=== PATIENT | female | born 1940 | race Caucasian/White ===

== ENCOUNTER 2020-05-21 10:30 | Outpatient (REF) | payer SELFPAY | END 2020-05-21 10:31 | disposition home or self-care (01) | LOC: HO.HAP 10:30 | PROVIDERS: PCP Internal Medicine; Visit Provider Internal Medicine | DX: Z46.1 Encounter for fitting and adjustment of hearing aid (principal) | CPT/HCPCS: V5266; V5267 ==

== ENCOUNTER 2020-05-29 12:12 | Outpatient (REF) | payer SELFPAY | END 2020-05-29 12:13 | disposition home or self-care (01) | LOC: HO.HAP 12:12 | PROVIDERS: PCP Internal Medicine; Referring Provider Internal Medicine; Visit Provider Internal Medicine | DX: Z46.1 Encounter for fitting and adjustment of hearing aid (principal) | CPT/HCPCS: 92700 ==

== ENCOUNTER 2020-09-03 10:25 | Outpatient (REF) | payer MEDICARE, SELFPAY ==
--- NOTE | 2020-09-04 08:10 | MHC.AU.P13 ---
Adult Audiological Evaluation Date of Visit: 09/03/20 Manager Industrial Used: Not Applicable Reason for Appointment: Audiologic re-evaluation due to question of change in hearing ability, particularly when background noise is present. Is also getting significant amount of feedback from both hearing aids. 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 Ear History: Recent Ear Infections: Past history of ear infections, none recently History of Ear Wax Buildup: Right ear recently cleaned by PCP Medical History: Medical History: Cancer High Blood Pressure Medical History: Skin cancer - surgically removed. Breast lumpectomy with radiation and Tamoxifen History of significant post nasal drop Medication List: Hydrochlorothorizide, Pantrprazol, Lorazepam, Atorvastatin, Multi Vitamin, Flonase as needed. Hearing Instrument History- Right Ear: Integration Project Manager: Asha Model: S Series 9 [facility] Serial Number: [id number] Battery Size: 10 Repair Warranty: 06/23/2020 Loss and Damage Warranty: Dispensed By: [facility] Date of Fittin06/26/2009 Hearing Instrument History- Left Ear: Integration Project Manager: Asha Model: S SERIES 9 [facility] Serial Number: [id number] Battery Size: 10 Warranty: 06/23/2020 Loss and Damage Warranty: Dispensed By: [facility] Date of Fittin06/26/2009 Otoscopy: Right Ear: Partially occluded with cerumen Left Ear: Unremarkable Tympanometry: Tympanometry performed due to: History of middle ear dysfunction Right Ear: Normal Middle Ear System (Type A) Left Ear: Normal Middle Ear System (Type A) Hearing Evaluation: Transducer(s) Used: Insert Earphones Method: Conventional Audiometry Stimuli Used: Pure Tones Right Ear: Description of Hearing: Mild dropping to severe high frequency sensorineural hearing loss Left Ear: Description of Hearing: Mild dropping to severe high frequency sensorineural hearing loss Speech Recognition Threshold (SRT): Method Used: Monitored Live Voice Stimuli Used: Spondee Words Right Ear: 35 dB HL Left Ear: 35 dB HL Word Discrimination: Method: Recorded Lists Word Lists Used: NU-6 Right Ear: 92% at 75 dB HL Left Ear: 92% at 75 dB QuickSIN: Binaural Quick SIN Test score: 4 dB SNR Loss suggesting Carmel experiences a mild degree of difficulty understanding speech with increasing levels of background noise. Comparison: Compared to 06/11/2019, thresholds have decreased 5-10 dB with a slight decrease in speech understanding for both ears Recommendations: Audiological re-evaluation in one year. Advise cerumen removal from the right ear. Carmel will try the [id number] drops Ear Wax MD. If using the drops does not remove the cerumen, she is advised to have a physician remove the cerumen. Due to the age of the current hearing aids and the aids are reaching their maximum range of amplification, discussed obtaining new hearing aids. Will send a medical clearance to PCP. Carmel will schedule a Hearing Aid Evaluation appointment when she is ready to pursue new hearing aids. Diagnosis: Primary Diagnosis: H90.3 Bilateral Sensorineural Hearing Loss Services Performed: Comprehensive Audiological Evaluation (CPT 28658) Tympanometry (CPT 96943) Signature: Provider: Blas Feliciano, MACI-A
--- NOTE | 2020-09-04 08:13 | MHC.AU.MED ---
Medical Clearance for Hearing Instrumentation Date: 09/04/20 Patient Name: Carmel Velazquez Date of : 1940 Primary Care Provider: Referring Provider: Brianda Gonsales MD We have seen your patient on 09/04/20 and have determined that they are a candidate for amplification (See accompanying report). Specifically, they would benefit from: Hearing aid use in both ears There is a statute that addresses Medical Evaluation Requirements prior to fitting a patient with a hearing aid. According to [place] statute 265 CMR:6.03(1), (a) General. Except as provided in 265 CMR 6.03(1)(b), a process assistant shall not sell a hearing aid unless the prospective user has presented to the process assistant a written statement signed by a licensed physician that states that the patient's hearing loss has been medically evaluated and the patient may be considered a candidate for a hearing aid. The medical evaluation must have taken place within the preceding six months. Please note: Due to the [place] Statute referenced above, we cannot accept a signature other than that of a licensed physician. REPTILE FARMER and PA signatures cannot be accepted. I am in agreement with the above recommendation. There is no medical contraindication for hearing instrumentation. Physician Signature Date Physician Name (Printed)
== END 2020-09-03 10:26 | disposition home or self-care (01) ==
LOC: HO.SH 10:25
PROVIDERS: Visit Provider Internal Medicine
DX: H90.3 Sensorineural hearing loss, bilateral (principal)
CPT/HCPCS: 92557; 92567

== ENCOUNTER 2020-09-03 11:53 | Outpatient (REF) | payer SELFPAY | END 2020-09-03 11:54 | disposition home or self-care (01) | LOC: HO.HAP 11:53 | PROVIDERS: Visit Provider Internal Medicine | DX: Z46.1 Encounter for fitting and adjustment of hearing aid (principal) | CPT/HCPCS: V5266; V5267 ==

== ENCOUNTER 2020-09-15 11:06 | Outpatient (REF) | payer SELFPAY | END 2020-09-15 11:07 | disposition home or self-care (01) | LOC: HO.HAP 11:06 | PROVIDERS: Visit Provider Internal Medicine | DX: Z13.89 Encounter for screening for other disorder (principal) ==

== ENCOUNTER 2020-12-04 08:58 | Outpatient (REF) | payer SELFPAY ==
--- NOTE | 2020-12-07 09:02 | MHC.AU.HAS ---
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 Patient wants new hearing aids and to send her current aids for repair when fit with the new aids as she has a warranty until 06/23/2021. Discussed RICARDO vs. CIC aids and patient wants to continue with CIC. Hearing Aid Prescription: Based on the individual?s shared listening needs, communication environments, dexterity, desire for connectivity, and personal preferences, the following prescription for amplification has been made: Right ear: Warehouse Clerk: [employer] Model: Diane i2400 CIC Battery Size: 10 Color: [place] Splitting Machine Operator Helper: Tubing: Type of Dome: Type of Mold: Left ear: Left ear prescription to be same as Right Hearing Aid above: Warehouse Clerk: [employer] Model: Diane i2400 CIC Battery Size: 10 Color: [place] Splitting Machine Operator Helper: Tubing: Type of Dome: Type of Mold: Plan of Care: Patient wishes to purchase hearing aids as prescribed Action Taken/Action Needed: Earmold Impressions Taken Hearing Fitting to be scheduled when materials arrive Comments: Medical clearance in chart Primary Diagnosis: H90.3 Bilateral Sensorineural Hearing Loss Signature: Provider: Blas Feliciano, CCC-A
== END 2020-12-04 08:59 | disposition home or self-care (01) ==
LOC: HO.HAP 08:58
PROVIDERS: Visit Provider Internal Medicine
DX: H90.3 Sensorineural hearing loss, bilateral (principal); Z46.1 Encounter for fitting and adjustment of hearing aid
CPT/HCPCS: 92591; V5266; V5267

== ENCOUNTER 2020-12-25 07:58 | Outpatient (REF) | payer SELFPAY | END 2020-12-25 07:59 | disposition home or self-care (01) | LOC: HO.HAP 07:58 | PROVIDERS: Visit Provider Internal Medicine | DX: Z46.1 Encounter for fitting and adjustment of hearing aid (principal); H90.3 Sensorineural hearing loss, bilateral | CPT/HCPCS: V5259 ==

== ENCOUNTER 2021-01-05 10:02 | Outpatient (REF) | payer SELFPAY ==
--- NOTE | 2021-01-06 08:21 | MHC.AU.HFU ---
Hearing Instrument Follow-Up- Binaural Date of Visit: 01/05/21 Right Ear: Storm Door Maker: Asha Model: Diane i2400 [facility] Serial Number: [id number] Repair Warranty: 01/18/2024 Remake warranty 01/17/2022 Loss and Damage Warranty: 01/18/2024 Battery Size: 10 Color: [place] Type of Wax Guard: HEAR CLEAR Dispensed By: [facility] Date of Fittin12/25/2020 Left Ear: Storm Door Maker: Asha Model: Diane i2400 [facility] Serial Number: [id number] Repair Warranty: 01/18/2024 Remake warranty 01/17/2022 Loss and Damage Warranty: 01/18/2024 Battery Size: 10 Color: [place] Type of Wax Guard: HEAR CLEAR Dispensed By: [facility] Date of Fittin12/25/2020 Follow-Up Summary: Patient is having significant trouble with own voice which is interfering with her overall hearing with the hearing aids. Family thinks overall she is understanding them better with the new aids, but patient is unable to wear the new aids. Sending aids in for remake make vents larger. ALSO HAVING TROUBLE WITH PHONE CUTTING IN AND OUT, CONSIDER DEACTIVATING AUTO PHONE Recommendations: Recommendations (Other): Sending aids in for remake make vents larger. Call patient for appointment when in. ALSO HAVING TROUBLE WITH PHONE CUTTING IN AND OUT, CONSIDER DEACTIVATING AUTO PHONE Diagnosis Code(s): Primary Diagnosis: H90.3 Bilateral Sensorineural Hearing Loss Services Performed: ABDUL Non-Quantity Charges: HANC: NonBillable Event Signature: Provider: Blas Feliciano, CCC-A
== END 2021-01-05 10:03 | disposition home or self-care (01) ==
LOC: HO.HAP 10:02
PROVIDERS: Visit Provider Internal Medicine
DX: Z13.89 Encounter for screening for other disorder (principal)

== ENCOUNTER 2021-01-13 10:31 | Outpatient (REF) | payer SELFPAY | END 2021-01-13 10:32 | disposition home or self-care (01) | LOC: HO.HAP 10:31 | PROVIDERS: Visit Provider Internal Medicine | DX: Z13.89 Encounter for screening for other disorder (principal) ==

== ENCOUNTER 2021-01-27 10:28 | Outpatient (REF) | payer SELFPAY ==
--- NOTE | 2021-01-27 13:25 | MHC.AU.HFU ---
Hearing Instrument Follow-Up- Binaural Date of Visit: 01/27/21 Right Ear: Communications Officer: Alberto Model: Diane i2400 [facility] Serial Number: [id number] Repair Warranty: 01/18/2024 Remake warranty 01/17/2022 Loss and Damage Warranty: 01/18/2024 Battery Size: 10 Type of Wax Guard: HEAR CLEAR Dispensed By: [facility] Date of Fittin12/25/2020 Left Ear: Communications Officer: Alberto Model: Diane i2400 [facility] Serial Number: [id number] Repair Warranty: 01/18/2024 Remake warranty 01/17/2022 Loss and Damage Warranty: 01/18/2024 Battery Size: 10 Color: [place] Type of Wax Guard: HEAR CLEAR Dispensed By: [facility] Date of Fittin12/25/2020 Follow-Up Summary: Patient reports some improvement with remakes, but still having problems. Getting frequent clicking possible chirping feedback from both aids, especially when using the phone, having trouble understanding people talking from [place] [employer] and when in democrat environment. Right aid feels blocked still. Used Expert Streetcar Repairer for Plugged Ear one step to decrease lows for the right, both ears for distant speech too loud one step to increase highs. Called [facility] and spoke with Светлана. Used speech mapping to see 6065-8244 Hz increase when covering right aid, decreased 2 steps. Decided to do another remake of the right aid, see notes on remake form. Ref#[id number]. SENDING OLD RIGHT AID IN WITH NEW RIGHT FOR COMPARISON ONLY Recommendations: Recommendations (Other): SCHEDULE APPOINTMENT SOON REMAKE AND OLD RIGHT AID (not sent for repair) IN. SET UP ALBERTOPOPEYE CASTILLO TO SEE IF PATIENT HAS SAME PROBLEM. Diagnosis Code(s): Primary Diagnosis: H90.3 Bilateral Sensorineural Hearing Loss Signature: Provider: Blas Feliciano, [facility]
--- NOTE | 2021-02-05 09:33 | MHC.AU.HFU ---
Hearing Instrument Follow-Up- Binaural Date of Visit: 02/05/21 Right Ear: Executive Director Of Nursing: Asha Model: Diane i2400 [facility] Serial Number: [id number] Repair Warranty: 01/18/2024 Remake warranty 01/17/2022 Loss and Damage Warranty: 01/18/2024 Battery Size: 10 Color: [place] Type of Wax Guard: HEAR CLEAR Dispensed By: [facility] Date of Fittin12/25/2020 Left Ear: Executive Director Of Nursing: Asha Model: Diane i2400 [facility] Serial Number: [id number] Repair Warranty: 01/18/2024 Remake warranty 01/17/2022 Loss and Damage Warranty: 01/18/2024 Battery Size: 10 Color: [place] Type of Wax Guard: HEAR CLEAR Dispensed By: [facility] Date of Fittin12/25/2020 Follow-Up Summary: New remade hearing aid and older aid that was sent for comparison received. Called patient to schedule pick-up and adjustment, however she will be on vacation February 06- and asked if she could at least picker and packer the old one to use while on vacation. Realized that the old one was returned to us with a missing battery door, even though it was sent in good condition. Found a battery door in our stock that fit and worked for now, though it doesn't seem to be a perfect fit. Called patient to explain the situation and advised that she could use the older one as is with the replacement door and she can take the new one to try out as well. Patient was agreeable to the plan and she came in today to picker and packer both aids. Scheduled on 02/15/21to see Minad for adjustments. Called Asha and they are sending a new battery door for the older aid. Signature: Provider: Chari Morocho, [facility]
== END 2021-01-27 10:29 | disposition home or self-care (01) ==
LOC: HO.HAP 10:28
PROVIDERS: Visit Provider Internal Medicine
DX: Z13.89 Encounter for screening for other disorder (principal)

== ENCOUNTER 2021-03-05 07:58 | Outpatient (REF) | payer SELFPAY ==
--- NOTE | 2021-03-05 16:06 | MHC.AU.HFU ---
Hearing Instrument Follow-Up- Binaural Date of Visit: 03/05/21 Right Ear: Securities And Real Estate Director: Asha Model: Diane i2400 CIC Serial Number: [id number] Repair Warranty: 01/18/2024 Remake warranty 01/17/2022 Loss and Damage Warranty: 01/18/2024 Battery Size: 10 Color: [place] Type of Wax Guard: HEAR CLEAR Dispensed By: [facility] Date of Fittin12/25/2020 Left Ear: Securities And Real Estate Director: Asha Model: Diane i2400 CIC Serial Number: [id number] Repair Warranty: 01/18/2024 Remake warranty 01/17/2022 Loss and Damage Warranty: 01/18/2024 Battery Size: 10 Color: [place] Type of Mold: Type of Wax Guard: HEAR CLEAR Dispensed By: [facility] Date of Fittin12/25/2020 Follow-Up Summary: Still waiting for replacement battery door for old Right CIC. Called [employer] customer service who reported the part was out of stock, estimated to be delivered 03/08/2021. Patient continues to have significant trouble with feedback, ear discomfort, and speech understanding problems with the new CIC. Placed DEMO Asha [place] RICARDO-R aid in the left ear and patient reported she likes the feel and seems to hear better compared to the CIC. Will order binaural Asha Kennedy i2400 RICARDO-R aids in [facility] with #3 60 gain receivers and 2.4 Remote Recommendations (Other): HAF and placement of CIC battery door to be scheduled when RICARDO-R aids received. Diagnosis Code(s): Primary Diagnosis: H90.3 Bilateral Sensorineural Hearing Loss Signature: Provider: Minda Odonnell, [facility]
== END 2021-03-05 07:59 | disposition home or self-care (01) ==
LOC: HO.HAP 07:58
PROVIDERS: Visit Provider Internal Medicine
DX: Z13.89 Encounter for screening for other disorder (principal)

== ENCOUNTER 2021-03-18 09:07 | Outpatient (REF) | payer SELFPAY ==
--- NOTE | 2021-03-18 15:44 | MHC.AU.FUR ---
Hearing Instrument Follow-Up Date of Visit: 03/18/21 Right Ear: Engineering Mechanic: Asha Model: Kennedy 2400 RICARDO-R Serial Number: [id number] Repair Warranty: 06/09/2024 Battery Size: Rechargeable Color: [place] Electrophysiology Tech: #3 60 gain Type of Dome: Closed 7 mm Type of Wax Guard: HEAR CLEAR Dispensed By: [facility] Date of Fittin03/18/2021 Left Ear: [id number] Follow-Up Summary: HAF with RICARDO-R aids. Ran feedback test and performed Real Ear measurements at experience level #4, with Frequency Lowering feature turned off, and making adjustments to better meet targets. Then activated Frequency Lowering feature to default following real ear measurements. Activated volume control and all other features on default with no programs. Paired the Remote Microphone + to the hearing aids. This remote only connect to volume control of bluetooth paired devices and does not change volume of the hearing aids themselves. Tried to download the [employer] ivan; however, patient has been unable to download any ivan on her phone. Patient prefers to NOT have the Remote Micophone +, so returned for credit along with the [place] [employer] aids for credit. Patient plans to determine if she will be buying a new cellphone which will be compatible with the aids and Thrive ivan. She would like to use her phone as the remote control. Practiced insertion and volume control, reviewed wax guard change, patient doing well in office. Recommendations (Other): Scheduled 2 week F/U. Will discuss her cellphone situation. IF KEEPING THE RICAROD-R AIDS, WILL NEED TO CREDIT 12/25/20 HAF ACCOUNT AND TRANSFER TO NEW ACCOUNT FOR $5900.00 Diagnosis Code(s): Primary Diagnosis: H90.3 Bilateral Sensorineural Hearing Loss Services Performed: ABDUL Non-Quantity Charges: HANC: NonBillable Event Signature: Provider: Chavez Feliciano, CCC-A
== END 2021-03-18 09:08 | disposition home or self-care (01) ==
LOC: HO.HAP 09:07
PROVIDERS: Visit Provider Internal Medicine
DX: Z13.89 Encounter for screening for other disorder (principal)

== ENCOUNTER 2021-03-19 13:24 | Outpatient (REF) | payer SELFPAY | END 2021-03-19 13:25 | disposition home or self-care (01) | LOC: HO.HAP 13:24 | PROVIDERS: Visit Provider Internal Medicine | DX: Z13.89 Encounter for screening for other disorder (principal) ==

== ENCOUNTER 2021-04-07 10:28 | Outpatient (REF) | payer SELFPAY ==
--- NOTE | 2021-04-09 08:26 | MHC.AU.HFA ---
Hearing Instrument Fitting- Adult- Binaural Date of Visit: 04/07/21 Hearing Instruments Dispensed: Right Ear: Asphalt Engineer: Asha Model: Kennedy 2400 RICARDO-R Serial Number: [id number] Repair Warranty: 06/09/2024 Battery Size: Rechargeable Color: [place] National Secretary: #3 60 gain Type of Dome: Closed 9 mm Type of Wax Guard: HEAR CLEAR Left Ear: Asphalt Engineer: Asha Model: Kennedy 2400 RICARDO-R Serial Number: [id number] Repair Warranty: 06/09/2024 Battery Size: Rechargeable Color: [place] National Secretary: #3 60 gain Type of Dome: Closed 9 mm Type of Wax Guard: HEAR CLEAR Summary of Fitting: Binaural RICARDO-R aids were fit on 03/18/21, but not billed before knowing patient wanted to keep these aids. Please refer to 03/18/21 visit for fitting notes. Patient reports she is doing better with the RICARDO style of aids, but is getting some feedback, right ear greater than left. Changed from 7mm to 9mm closed domes binaurally. Patient still has to work at insertion to decrease feedback. Discussed trying custom tips, but patient prefers to stay with domes at this time. Patient looked into new cell phone but wanted more information about best Android compatibility from Asha before purchasing. Adia from [facility] says I Phones are most reliable, but the newest [employer] 21 models seem to have the best Android connections. Completed form to have the 12/25/20 HAF account balance transferred to today's account and the patient will be billed $700.00 for the rechargeable model purchased. Patient still wants to send in the CIC aids before warranty expires, but wants to wait until after getting cell phone situation resolved. Patient will call office to confirm time to drop off CIC aids. Recommendations: Recommendations: Please call our clinic with any questions or concerns. Diagnosis Code(s): Primary Diagnosis: H90.3 Bilateral Sensorineural Hearing Loss Services Performed: ABDUL Product Codes: BTE- Binaural- Level 4 2 Rechargeable batteries Signature: Provider: Blas Feliciano, [facility]
== END 2021-04-07 10:29 | disposition home or self-care (01) ==
LOC: HO.HAP 10:28
PROVIDERS: Visit Provider Internal Medicine
DX: Z46.1 Encounter for fitting and adjustment of hearing aid (principal); H90.3 Sensorineural hearing loss, bilateral
CPT/HCPCS: V5261; V5299

== ENCOUNTER 2021-06-01 10:49 | Outpatient (REF) | payer SELFPAY | END 2021-06-01 10:50 | disposition home or self-care (01) | LOC: HO.HAP 10:49 | PROVIDERS: Visit Provider Internal Medicine | DX: Z13.89 Encounter for screening for other disorder (principal) ==

== ENCOUNTER 2021-06-11 13:01 | Outpatient (REF) | payer SELFPAY | END 2021-06-11 13:02 | disposition home or self-care (01) | LOC: HO.HAP 13:01 | PROVIDERS: Visit Provider Internal Medicine | DX: Z13.89 Encounter for screening for other disorder (principal) ==

== ENCOUNTER 2022-02-16 10:27 | Outpatient (REF) | payer SELFPAY ==
--- NOTE | 2022-02-16 15:12 | MHC.AU.HFU ---
Hearing Instrument Follow-Up- Binaural Date of Visit: 02/16/22 Right Ear:Piece Meat Trimmer: AshaModel: Kennedy 2400 RICARDO-RSerial Number: [id number] Repair Warranty: 06/09/2024 Battery Size: Rechargeable Color: [place] Psychotherapist Social Worker: #3 60 gain Type of Dome: Closed 9 mm Type of Wax Guard: HEAR CLEAR Dispensed By: [facility] Date of Fittin03/18/2021 Left Ear:Piece Meat Trimmer: Asha Model: Kennedy 2400 RICARDO-R Serial Number: [id number] Repair Warranty: 06/09/2024 Battery Size: Rechargeable Color: [place] Psychotherapist Social Worker: #3 60 gain Type of Dome: Closed 9 mm Type of Wax Guard: HEAR CLEAR Dispensed By: [facility] Date of Fittin03/18/2021 Follow-Up Summary: Patient is having problems with feedback, left aid greater than right. She reports she has experienced feedback since being fit with the aids, but has gotten a bit worse over time. Otoscopy shows partially occluding cerumen, but not likely enough to cause the amount of feedback. Changing the direction of the dome in the left ear in particular reduced the amount of feedback. Tried different domes with no improvement. Discussed options and patient wants to try soft material custom earmolds. Will use scans of impressions on file taken for trial with new CIC tried in December 2020. Patient also having trouble with the old right Series 9 CIC with hearing noise. She wondered shortly after getting it back from repair last year if it was programmed properly. Picked up 09/15/20 settings and patient reports she does not hear the noises while in the office today. Will try. Also reviewed the [employer] Shanika. Recommendations: Schedule appointment when left earmold in Diagnosis Code(s): Primary Diagnosis: H90.3 Bilateral Sensorineural Hearing Loss Signature:Provider: Chavez Feliciano, CCC-A
== END 2022-02-16 10:28 | disposition home or self-care (01) ==
LOC: HO.HAP 10:27
PROVIDERS: Visit Provider Internal Medicine
DX: Z13.89 Encounter for screening for other disorder (principal)

== ENCOUNTER 2022-03-03 13:28 | Outpatient (REF) | payer SELFPAY | END 2022-03-03 13:29 | disposition home or self-care (01) | LOC: HO.HAP 13:28 | PROVIDERS: Visit Provider Internal Medicine | DX: Z46.1 Encounter for fitting and adjustment of hearing aid (principal); H90.3 Sensorineural hearing loss, bilateral | CPT/HCPCS: V5264 ==

== ENCOUNTER 2023-01-18 10:10 | Outpatient (REF) | payer SELFPAY | END 2023-01-18 10:11 | disposition home or self-care (01) | LOC: HO.HAP 10:10 | PROVIDERS: Visit Provider Internal Medicine | DX: Z13.89 Encounter for screening for other disorder (principal) ==

== ENCOUNTER 2023-02-02 14:52 | Outpatient (REF) | payer SELFPAY | END 2023-02-02 14:53 | disposition home or self-care (01) | LOC: HO.HAP 14:52 | PROVIDERS: Visit Provider Internal Medicine | DX: Z13.89 Encounter for screening for other disorder (principal) ==

== ENCOUNTER 2023-02-14 11:09 | Outpatient (REF) | payer SELFPAY | END 2023-02-14 11:10 | disposition home or self-care (01) | LOC: HO.HAP 11:09 | PROVIDERS: Visit Provider Internal Medicine | DX: Z46.1 Encounter for fitting and adjustment of hearing aid (principal); H90.3 Sensorineural hearing loss, bilateral | CPT/HCPCS: V5014 ==

== ENCOUNTER 2024-09-26 09:09 | Outpatient (REF) | payer SELFPAY ==
--- OUTSIDE RECORDS SUMMARY | 2024-09-26 10:08 | XMS_ITS | Continuity of Care Document ---
Author Organization [facility] Address [address] [place] [address]- Care Team Providers Care Hotel Maid Name Role Phone Brianda Gonsales MD Primary Care Physician Encounter 09/17/24 - 09/24/24 [facility] [address], [address] [place] [address]- Attending Physician: Emre Hayes MD Admitting Physician: Emre Hayes MD Referring Physician: Emre Hayes MD Encounter Type: OutPatient One Time Allergies, Adverse Reactions, Alerts Substance Criticality Severity Reaction Reaction Severity Status enalapril Low criticality Mild rash Acti ve Macrobid Active penicillin 1 Low criticality Mild Swelling A ctive lisinopril cough Active 1family history Immunizations Given and Recorded Vaccine Date Status Refusal Reason SARS-CoV-2 (COVID-19) mRNA BNT-162b2 vac 06/15/21 Recorded SARS-CoV-2 (COVID-19) mRNA BNT-162b2 vac 09/13/20 Recorded SARS-CoV-2 (COVID-19) mRNA BNT-162b2 vac 08/24/20 Recorded influenza virus vaccine, inactivated 04/08/21 [place]coe rded influenza virus vaccine, inactivated 04/13/20 [place] rded influenza virus vaccine, inactivated 05/11/18 [place] rded influenza virus vaccine, inactivated 05/10/17 [place] rded influenza virus vaccine, inactivated 05/10/16 [place] rded influenza virus vaccine, inactivated 04/10/15 [place] rded influenza virus vaccine, inactivated 05/16/14 [place] rded influenza virus vaccine, inactivated 05/16/13 [place] rded influenza virus vaccine, inactivated 05/14/12 [place] rded tetanus/diphtheria/pertussis, acel(Tdap) 10/25/17 Recorded Medications Albuterol (Eqv-ProAir HFA) 90 mcg/inh inhalation aerosol 2 puffs, Inhalation, Every 6 hours, PRN Wheezing/Shortness of Breath, 0 Refills, Maintenance, 04/18/24 2:59:00 PM EDT, Partial fill upon patient request if the prescription is for a schedule II opioiddrug. Start Date: 04/18/24 Status: Ordered Repeat number: 1 Aleve 220 mg oral capsule 1 capsule = 220 mg, By Mouth, Daily, PRN Pain , Moderate, 0 Refills, Maintenance, 01/03/22 1:04:00 PM EDT, Partial fill upon patient request if the prescription is for a schedule II opioid drug. Start Date: 01/03/22 Status: Ordered Repeat number: 1 anastrozole 1 mg oral tablet 1 tablet = 1 mg, By Mouth, Daily, for 90 days, please initiate only once radiation treatment is completed., # 90 tablet, 0 Refills, Hard Stop 10/23/24 1:31:00 PM EDT, 07/25/24 1:31:00 PM EST, Tablet, [id number], Partial fill upon patient request if the prescription is for a schedule IIopioid drug., 160, cm, 06/05/24 13:23:00 EST, Height, 60.6, kg, 05/22/24 6:07:00 EDT, Dry Weight Start Date: 07/25/24 Stop Date: 10/23/24 Status: Ordered Quantity: 90.0 Unit: tablet Repeat number: 1 anastrozole 1 mg oral tablet 1 tablet = 1 mg, By Mouth, Daily, please initiate only once radiation treatment is completed., # 90tablet, 3 Refills, Maintenance, 10/23/24 1:31:00 PM EDT, Tablet, [facility], Partial fill upon patient request if the prescription is for a schedule II opioid drug., 160, cm, 08/22/24 11:25:00EST, Height, 59.9, kg, 08/22/24 11:25:00 EST, Dry Weight Start Date: 10/23/24 Status: Ordered Quantity: 90.0 Unit: tablet Repeat number: 4 atorvastatin 10 mg oral tablet 1 tablet = 10 mg, By Mouth, Every 48 hours, 0 Refills, Maintenance, 2/3/20 2:53:00 PM EST Start Date: 08/26/19 Status: Ordered Repeat number: 1 Claritin 10 mg oral tablet 10 mg, 1, tablet, By Mouth, Daily at bedtime, Refills 0, Maintenance, 08/26/19 2:55:00 PM EST Start Date: 08/26/19 Status: Ordered Repeat number: 1 clindamycin 300 mg oral capsule 2 capsules, By Mouth, before dental procedure, 0 Refills, Maintenance, 04/18/24 3:01:00 PM EDT, Partial fill upon patient request if the prescription is for a schedule II opioid drug. Start Date: 04/18/24 Status: Ordered Repeat number: 1 Famotidine 0 Refills, Maintenance, 08/22/24 11:37:00 AM EST, Partial fill upon patient request if the prescription is for a schedule II opioid drug. Start Date: 08/22/24 Status: Ordered Repeat number: 1 hydrochlorothiazide 25 mg oral tablet 25 mg, 1, tablet, By Mouth, Daily in AM, Refills 0, Maintenance, 08/26/19 2:53:00 PM EST Start Date: 08/26/19 Status: Ordered Repeat number: 1 LORazepam 0.5 mg oral tablet 0.5 tablet = 0.25 mg, By Mouth, Daily at bedtime, PRN as needed for anxiety, 0 Refills, Maintenance, 12/12/21 12:38:00 PM EDT, Tablet, Partial fill upon patient request if the prescription is for a schedule II opioid drug. Start Date: 12/12/21 Status: Ordered Repeat number: 1 Multivitamin 1 tablet, By Mouth, Daily in AM, 0 Refills, Maintenance, 08/26/19 2:53:00 PM EST Start Date: 08/26/19 Status: Ordered Repeat number: 1 pantoprazole 40 mg oral delayed release tablet = 40 mg, By Mouth, Daily in AM, 0 Refills, Maintenance, 09/12/19 6:32:00 AM EST, EC Tablet Start Date: 09/12/19 Status: Ordered Repeat number: 1 [place] Topically, PRN Other, to prevent wrinkles., 0 Refills, Maintenance, 01/03/22 1:04:00 PM EDT, Partialfill upon patient request if the prescription is for a schedule II opioid drug. Start Date: 01/03/22 Status: Ordered Repeat number: 1 Tylenol 325 mg oral capsule 1 capsule = 325 mg, By Mouth, 2 times a day, for artritis pain., 0 Refills, Maintenance, 01/03/22 1:04:00 PM EDT, . Start Date: 01/03/22 Status: Ordered Repeat number: 1 Vitamin D3 oral tablet 1 tablet = 10 mcg, By Mouth, Daily, with calcium, 0 Refills, Maintenance, 08/22/24 11:37:00 AM EST, Partial fill upon patient request if the prescription is for a schedule II opioid drug. Start Date: 08/22/24 Status: Ordered Repeat number: 1 Problem List Condition Confirmation Course Effective Dates Status Health St atus Informant History of Breast CA Confirmed Active Bladder cancer Confirmed Active Malignant neoplasm of overlapping sites of right breast in female, estrogen receptor positive Confirmed Active Spontaneous pneumothorax Confirmed Active Results Radiology Reports * Exam Date Time Procedure Performing Provider Status 09/17/24 11:[address] Abd/Pelvis W/O + W/ IV Contrast Peewee Berry; Modified Notes: (CT Abd/Pelvis W/O + W/ IV Contrast) Reason For Exam: hematuria RESULT: CT Abd/Pelvis W/O + W/ IV Contrast CT Abd/Pelvis W/O + W/ IV Contrast INDICATION: Reason: hematuria, TECHNIQUE: Helical CT of the abdomen and pelvis was performed pre and post administration of intravenous contrast. Post contrast imaging performed in separate nephrographic and pyelographic phases. Coronal and sagittal reformatted images generated. 100 cc of Isovue 300 was administered intravenously. Weight- based protocol using automatic tube modulation was used to optimize exposure parameters. COMPARISONS: 06/30/2016. FINDINGS: Renal calculi: There is a left lower pole renal pelvic calculus measuring 1.5 cm on 1242 Hounsfieldunits. There are vascular calcifications in the right kidney. Renal mass: In the lateral interpolar right kidney there is an exophytic 1.2 cm cyst. There are bilateral subcentimeter hypodense renal lesions which are too small to further characterize. Ureteral distention and contrast opacification: There is noncontrast filling of the distal right ureter limiting its evaluation.. Ureteral mass or filling defect: Within the limitations of the study there is no evidence of a ureteral mass of filling defects.. Urinary bladder: Unremarkable. Lung Bases: Extensive coarsening of the interstitial lung markings at the lung bases with bronchiectasis. Liver: Unremarkable. Gallbladder: No CT evidence of gallbladder pathology. Bile ducts: No biliary ductal dilation. Spleen: Unremarkable. Pancreas: Unremarkable. Adrenal glands: Unremarkable. Reproductive organs: Again demonstrated is a right ovarian cyst which is increased in size comparedto the prior exam now measuring 3.5 cm on the axial images compared to the prior exam when it measured 2.1 cm. Stomach, small bowel, and large bowel: Diverticulosis of the colon. Appendix: Normal appendix. Peritoneum and retroperitoneum: There is no evidence of free air or free fluid in the abdomen or pelvis. Lymph nodes: No enlarged lymph nodes. Blood vessels: Moderate atherosclerotic vascular calcification. No aortic aneurysm. Abdominal and pelvic wall soft tissues: There is a tiny fat filled umbilical hernia. Bones: No acute abnormality. Again demonstrated are multilevel discogenic degenerative changes of the thoracolumbar spine. There is new 4 mm anterolisthesis of L4 with respect to L5. There are mild osteoarthritic changes of the hip joints. IMPRESSION: 1. There is no evidence of renal collecting system, ureteral or urinary bladder pathology. 2. Findings suggestive of interstitial lung disease of the imaged lung bases. Further evaluation with a high-resolution CT scan of the chest may be performed for better characterization. 3. Right ovarian cyst which demonstrates interval increase in size. Further evaluation with a pelvic ultrasound scan is recommended. 4. Multiple chronic findings as detailed above. WSN: [id number] Ordering Physician: Emre Hayes Dictated By: Taty Doran MD Dictated Date/Time: 09/17/24 7:07 pm Reviewed By: Taty Doran MD Signed By: Taty Doran MD Signed Date/Time: 09/17/24 7:07 pm Transcribed By: XAVIER Transcribed Date/Time: 09/17/24 6:44 pm Social History Social History Type Response Smoking Status Former smoker, quit more than 30 days ago; Other: quit 1977; 1.5 ppd x age 19; entered on: 01/03/22 Sex Sex Representation Female (finding) Patient Care team information Care Team Personnel Name: Kimi Dhillon RN Position: [facility] RN Member Role: Primary Care Nurse Name: Yesenia Hernandez RN Position: [facility] RN Member Role: Primary Care Nurse Name: Audrey Akers RN Position: [facility] RN Member Role: Primary Care Nurse Name: Cathy Pichardo RN Position: [facility] RN Member Role: Primary Care Nurse Name: Kimberly Rizvi RN Position: [facility] SN RN Member Role: Primary Care Nurse Name: Maureen Gallagher Position: [facility] Onco RN Member Role: Primary Care Nurse Name: Baldo Cannon RN Position: [facility] RN Member Role: Primary Care Nurse Name: Brianda Gonsales MD Position: [facility] Outreach Member Role: PCP Address: [address] [place] [address] [place] [address] Telecom: Name: Alberto Mcnulty RN, Maureen Position: [facility] RN Member Role: Primary Care Nurse Name: Joleen Nath RN Position: [facility] RN Member Role: Primary Care Nurse Name: Vicki Fox RN Position: [facility] RN Member Role: Primary Care Nurse Care Team Related Persons Name: CHARLOTTE CARDENAS Insurance Providers Guarantor name: LACY ANDERSON [employer] Plan Information #: 1 Payer: MEDICARE PART B OUTPT Member Number: [id number] Policy Number: NA Group Number: NA Health Plan Information #: 2 Payer: MEDEX Member Number: [id number] Policy Number: NA Group Number: NA
--- OUTSIDE RECORDS SUMMARY | 2024-09-26 10:08 | XMS_ITS | Continuity of Care Document ---
Author Organization [facility] Address [address] [place] [address]- Care Team Providers Care Head Banquet Waitress Name Role Phone Dru AMEZQUITA, Brianda Primary Care Physician [id number]): [facility]22[facility] - 09/21/24 [facility] [address] [place], [place] [address] Encounter Type: Triage Allergies, Adverse Reactions, Alerts Substance Criticality Severity [...] PM EDT, 07/25/24 1:31:00 PM EST, Tablet, [id number], Partial fill upon patient request if the [...] Mouth, Every 48 hours, 0 Refills, Maintenance, 08/26/19 2:53:00 PM EST [...] Date: 09/12/19 Status: Ordered Repeat number: 1 [place] Topically, PRN Other, to prevent wrinkles., 0 [...] positive Confirmed Active Spontaneous pneumothorax Confirmed Active Social History Social History Type Response Smoking Status Former smoker, quit more than 30 days ago; Other: quit 1977; 1.5 ppd x age 19; entered on: 01/03/22 Sex Sex Representation Female (finding) Patient Care team information Care Team Personnel Name: Kimi Dhillon RN Position: [facility] RN Member Role: Primary Care Nurse Name: Yesenia Hernandez RN Position: [facility] RN Member Role: Primary Care Nurse Name: Audrey Akers RN Position: [facility] RN Member Role: Primary Care Nurse Name: Cathy Pichardo RN Position: [facility] RN Member Role: Primary Care Nurse Name: Kimberly Rizvi RN Position: [facility] SN RN Member Role: Primary Care Nurse Name: Maureen Gallagher Position: [facility] Onco RN Member Role: Primary Care Nurse Name: Baldo Cannon RN Position: [facility] RN Member Role: Primary Care Nurse Name: Brianda Gonsales MD Position: S Outreach Member Role: PCP Address: [address] [place] [address] [place] [address]- Telecom: Name: Maureen Guzman RN Position: [facility] RN Member Role: Primary Care Nurse Name: Joleen Nath RN Position: [facility] RN Member Role: Primary Care Nurse Name: Vicki Fox RN Position: [facility] RN Member Role: Primary Care Nurse Care Team Related Persons Name: CHARLOTTE CARDENAS Insurance Providers Guarantor name: LACY ANDERSON [employer] Plan Information #: 1 Payer: MEDICARE PART B OUTPT Member Number: NA Policy Number: NA Group Number: NA Health Plan Information #: 2 Payer: MEDEX Member Number: NA Policy Number: NA Group Number: NA
--- NOTE | 2024-09-26 10:24 | MHC.AU.HA3 ---
Hearing Instrument Follow-Up- Binaural Date of Visit: 09/26/24 Right Ear: Rob, Model, Color, Serial Number: [id number] RICARDO-R [id number] Diabetes Educator Repair Warranty: 06/09/2024 Diabetes Educator Loss and Damage Warranty: 06/09/2024 [facility] Service Plan: 06/09/2024 Battery Size: Rechargeable Staff Sonographer/Slim Tube: #3 60 gain Earmold/Dome/CShell/SlimTip:Asha daigle RICARDO mold #[id number] warranty 05/21/2022 Type of Wax Guard: HEAR CLEAR Dispensed By: [facility] Date of Fittin03/18/2021 Left Ear: Model Rob, Color, Serial Number: [id number] RICARDO-R [id number] Diabetes Educator Repair Warranty: 06/09/2024 Diabetes Educator Loss and Damage Warranty: 06/09/2024 [facility] Service Plan: 06/09/2024 Battery Size: Rechargeable Staff Sonographer/Slim Tube: #3 60 gain Earmold/Dome/CShell/SlimTip: Type of Wax Guard: HEAR CLEAR Dispensed By: [facility] Date of Fittin03/18/2021 Follow-Up Summary: Carmel reports her left aid is not working. Found left wax guard clogged. Cleaned both aids, replaced wax guards, vacuumed under microphone covers. Listening check positive. 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 Carmel also requested check of her old [facility] hearing aids. Cleaned aids, vacuumed mics, replaced wax guards. Listening check positive. Recommendations: Recommendations: Hearing instrument follow-up or maintenance as needed. Diagnosis Code(s): Primary Diagnosis: H90.3 Bilateral Sensorineural Hearing Loss Signature: Provider: Chari Resendiz, [facility]
== END 2024-09-26 09:10 | disposition home or self-care (01) ==
LOC: HO.HAP 09:09
PROVIDERS: Visit Provider Internal Medicine
DX: Z46.1 Encounter for fitting and adjustment of hearing aid (principal); H90.3 Sensorineural hearing loss, bilateral
CPT/HCPCS: 92593; V5266; V5267